=== PATIENT | male | born 1950 | race Caucasian/White ===

== ENCOUNTER 2016-12-16 20:56 | Outpatient (CLI) | payer MEDICARE, OTHER ==
[~2016-12-16 20:56] MED LIST: ASP81TEC PO; GLIM2TAB PO; GLIM4TAB PO; LIRA0.6P SQ; MALARONE; METFOR850T PO; MTP25TSR PO; RAMI10CA PO; [UNRECOGNIZED DRUG - OTHER]; lovaza PO
== END 2016-12-17 06:30 | disposition home or self-care (01) ==
LOC: RAD 20:56 → SLEEP 12-17 06:30
DX: G47.33 Obstructive sleep apnea (adult) (pediatric) (principal)
CPT/HCPCS: 95811

== ENCOUNTER 2017-02-01 09:09 | Outpatient (RCR) | payer MEDICARE, OTHER | END 2017-02-06 | disposition home or self-care (01) | LOC: CR 09:09 | PROVIDERS: ATTEND Internal Medicine Cardiovascular Disease | DX: Z48.812 Encounter for surgical aftercare following surgery on the circulatory system (principal); Z95.1 Presence of aortocoronary bypass graft | CPT/HCPCS: 93798 ==

== ENCOUNTER 2017-04-12 09:08 | Outpatient (RCR) | payer MEDICARE, OTHER | END 2017-05-11 | disposition home or self-care (01) | LOC: CR 09:08 | PROVIDERS: ATTEND Internal Medicine Cardiovascular Disease | DX: Z48.812 Encounter for surgical aftercare following surgery on the circulatory system (principal); Z95.1 Presence of aortocoronary bypass graft | CPT/HCPCS: 93798 ==

== ENCOUNTER → 2017-08-02 | Outpatient (CLI) | payer MEDICARE, OTHER ==
[~2017-08-02] MED LIST changes: +RT-ALBUTEROL SULF 2.5 MG/3 ML PRE-MIX VIAL INH ONE
== END ==
LOC: RT 12:35
PROVIDERS: ATTEND Internal Medicine
DX: R06.02 Shortness of breath (principal)
CPT/HCPCS: 94060; 94726; 94729

== ENCOUNTER → 2017-08-05 | Outpatient (CLI) | payer MEDICARE, OTHER ==
[~2017-08-05] MED LIST changes: -RT-ALBUTEROL SULF 2.5 MG/3 ML PRE-MIX VIAL INH ONE
--- NOTE | 2017-08-05 11:06 | Diagnostic Imaging Report ---
INDICATION: Shortness of air on exertion. TIME OF EXAMINATION: 10:58 AM. COMPARISON: No prior studies are available for comparison. FINDINGS: Changes of median sternotomy and CABG are noted. There are areas of linear parenchymal density in both bases, suggestive of subsegmental atelectasis. The left hemidiaphragm is mildly elevated. No effusion or pneumothorax is seen. IMPRESSION: Bibasilar subsegmental atelectasis. No other significant abnormality is detected. Dictated by: Dictated on workstation # [id number]
== END ==
LOC: RT 10:25
PROVIDERS: ATTEND Internal Medicine
DX: R06.02 Shortness of breath (principal)
CPT/HCPCS: 71046; 94761

== ENCOUNTER 2018-08-24 11:38 | Outpatient (RCR) | payer MEDICARE, OTHER | END 2018-10-25 | disposition home or self-care (01) | LOC: CR 11:38 | PROVIDERS: ATTEND Internal Medicine Cardiovascular Disease | DX: Z48.812 Encounter for surgical aftercare following surgery on the circulatory system (principal); Z95.5 Presence of coronary angioplasty implant and graft | CPT/HCPCS: 93798 ==

== ENCOUNTER → 2018-11-17 | Outpatient (CLI) | payer MEDICARE, OTHER ==
[~2018-11-17] MED LIST changes: +CATHETER FLUSH 10 ML SYR IV PRN; +HOLD METFORMIN - RECEIVED CONTRAST 20 ML VIAL IV SCH; +IOHEXOL 350 MG/ML 100 ML (OMNIPAQUE 350) VIAL IV ONE; +NS 100 ML (IVPB) BAG IV ONE
--- NOTE | 2018-11-17 14:12 | Diagnostic Imaging Report ---
PROCEDURE: CT abdomen and pelvis with contrast. TECHNIQUE: Multiple contiguous axial images were obtained through the abdomen and pelvis after administration of intravenous contrast. Auto Exposure Controls were utilized during the CT exam to meet ALARA standards for radiation dose reduction. INDICATION: Prostate cancer. FINDINGS: No comparison is available. Limited views of the lower thorax reveal patchy areas of atelectasis and calcified shilpi-granulomatous disease. Liver is steatotic. No suspicious liver lesions are seen. Gallbladder is normal. No biliary ductal dilatation. Portal vein is patent. Pancreas, spleen and adrenal glands are normal. There are several bilateral renal cysts. No hydronephrosis. Urinary bladder is normal. No dilated loops of large or small bowel. Surgical clips in the cecum are likely from prior appendectomy. There is no abdominal or pelvic lymphadenopathy. No free fluid or air. There is sclerosis of the superior endplate of S1, likely related to degenerative disease. IMPRESSION: 1. Sclerosis of superior endplate of S1, likely related to degenerative disease, otherwise no evidence of metastatic disease in the abdomen or pelvis. Dictated by: Dictated on workstation # [id number]
--- NOTE | 2018-11-17 17:10 | Diagnostic Imaging Report ---
INDICATION: Prostate cancer. COMPARISON: None. TECHNIQUE: Anterior and posterior scintigraphic images of the whole body were obtained 3 hours after the intravenous injection of 24.2 mCi of Tc-99m MDP. FINDINGS: Abnormal elongated foci of radiotracer uptake within the posterior left fourth and seventh ribs are unchanged when compared to prior examination. The avid focus of radiotracer activity previously noted in the anterior left lower ribs has resolved. The degree of sternal activity has mildly increased since prior examination but is likely due to degenerative changes near the sternomanubrial and sternoclavicular joints. No other abnormal foci of radiotracer activity. Physiologic activity within the kidneys and urinary bladder. IMPRESSION: 1. Overall, no significant change in presumed metastatic lesions in the posterior left ribs. 2. Decreased uptake in the lower anterior left rib may be due to healing of fracture since prior exam. 3. Increased activity within the sternum is likely degenerative and due to sternotomy. If patient's PSA level is raising, CT chest without contrast could be performed for further characterization. Dictated by: Dictated on workstation # [id number]
== END ==
LOC: CARD 12:02
PROVIDERS: ATTEND Internal Medicine Hematology & Oncology
DX: C61 Malignant neoplasm of prostate (principal); M89.8X8 Other specified disorders of bone, other site
CPT/HCPCS: 74177; 78306

== ENCOUNTER 2020-08-29 10:46 | Emergency (ER) | payer MEDICARE ==
[~2020-08-29] VITALS: Ht 182 cm; Wt 107.5 kg
[~2020-08-29 10:46] MED LIST changes: -CATHETER FLUSH 10 ML SYR IV PRN; -HOLD METFORMIN - RECEIVED CONTRAST 20 ML VIAL IV SCH; -IOHEXOL 350 MG/ML 100 ML (OMNIPAQUE 350) VIAL IV ONE; -NS 100 ML (IVPB) BAG IV ONE
[2020-08-29 11:19] LABS: BASOPHILS # (AUTO) 0.1 10^3/uL (0.0-0.1); BASOPHILS % (AUTO) 1 % (0-10); EOSINOPHILS # (AUTO) 0.1 10^3/uL (0.0-0.3); EOSINOPHILS % (AUTO) 2 % (0-10); HEMATOCRIT 42 % (40-54); HEMOGLOBIN 13.8 g/dL (13.3-17.7); LYMPHOCYTES % (AUTO) 31 % (12-44); MEAN CORPUSCULAR HEMOGLOBIN 30 pg (25-34); MEAN CORPUSCULAR HGB CONC 33 g/dL (32-36); MEAN CORPUSCULAR VOLUME 93 fL (80-99); MEAN PLATELET VOLUME 10.5 fL (9.0-12.2); MONOCYTES # (AUTO) 0.7 10^3/uL (0.0-1.0); MONOCYTES % (AUTO) 11 % (0-12); NEUTROPHILS # (AUTO) 3.4 10^3/uL (1.8-7.8); NEUTROPHILS % (AUTO) 54 % (42-75); PLATELET COUNT 225 10^3/uL (130-400); WHITE BLOOD COUNT 6.4 10^3/uL (4.3-11.0)
[2020-08-29 11:32] LABS: INR 1.1 (0.8-1.4); PROTHROMBIN TIME PATIENT 14.4 SEC (12.2-14.7)
[2020-08-29 11:33] LABS: CHLORIDE 103 MMOL/L (98-107); SODIUM 139 MMOL/L (135-145)
[2020-08-29 11:34] LABS: CALCIUM 9.8 MG/DL (8.5-10.1)
[2020-08-29 11:35] LABS: GLUCOSE 205 MG/DL (70-105)
[2020-08-29 11:36] LABS: TOTAL PROTEIN 7.2 GM/DL (6.4-8.2)
[2020-08-29 11:37] LABS: BILIRUBIN,TOTAL 0.8 MG/DL (0.1-1.0); CARBON DIOXIDE 22 MMOL/L (21-32)
[2020-08-29 11:39] LABS: ALKALINE PHOSPHATASE 84 U/L (40-136); CREATININE SERUM 1.16 MG/DL (0.60-1.30); GFR ESTIMATED > 60
[2020-08-29 11:40] LABS: BUN/CREATININE RATIO 16
[2020-08-29 11:42] LABS: ALANINE AMINOTRANSFERASE 16 U/L (0-55); MAGNESIUM 1.4 MG/DL (1.6-2.4)
--- NOTE | 2020-08-29 12:08 | Diagnostic Imaging Report ---
PROCEDURE: CT thoracic spine without contrast. TECHNIQUE: Multiple axial computerized tomography images were obtained from the base of the thoracic spine to the vertex without intravenous contrast. Auto Exposure Controls were utilized during the CT exam to meet ALARA standards for radiation dose reduction. INDICATION: Fall. FINDINGS: Curvature and alignment of the thoracic spine is normal. The vertebral body heights are maintained. No acute fracture is seen. There is generalized degenerative disc disease with variable disc space narrowing and marginal spurring. The paraspinous tissues are unremarkable. There is some scarring or atelectasis in the left base. IMPRESSION: Thoracic spondylosis. No acute bony abnormality is detected. Dictated by: Dictated on workstation # [id number]
--- NOTE | 2020-08-29 12:08 | Diagnostic Imaging Report ---
PROCEDURE: CT head and CT cervical spine without contrast. TECHNIQUE: Multiple contiguous axial images were obtained through the brain and cervical spine without the use of intravenous contrast. Sagittal and coronal reformations through the cervical spine were then performed. Auto Exposure Controls were utilized during the CT exam to meet ALARA standards for radiation dose reduction. INDICATION: Trauma. Fall from standing. Head injury. Headache. Neck and shoulder pain. COMPARISON: None. FINDINGS: CT HEAD: Moderate generalized cerebral and cerebellar parenchymal volume loss. No CT evidence of territorial infarction. No intracranial hemorrhage, mass effect, hydrocephalus or extra-axial fluid collections. Osseous structures are intact. The paranasal sinuses and mastoids are clear. CT cervical spine: Normal alignment. Vertebral body heights preserved. No fractures. Mild to moderate scattered spondylotic changes. No high-grade spinal canal stenosis is evident on soft tissue windows. Sternotomy. Advanced atherosclerotic calcifications in the carotid bifurcations. IMPRESSION: No acute intracranial or cervical spine CT findings. Chronic and incidental findings as above. Dictated by: Dictated on workstation # [id number]
--- NOTE | 2020-08-29 12:22 | ED Fall/Injury ---
General Chief Complaint: Head/Cervical Problems Stated Complaint: FELL HIT HEAD X 1 WK AGO Nursing Triage Note: PT PRESENTS TO ED VIA POV FROM HOME WITH COMPLAINTS OF FALLING 1 WEEK AGO WHEN HE TRIPPED WHILE STANDING. 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 PT DENIES LOC. PT REPORTS SALEH, NECK AND SHOULDER PAIN. Source: patient Exam Limitations: no limitations History of Present Illness Date Seen by Provider: Aug 29, 2020 Time Seen by Provider: 10:53 Initial Comments This is 70-year-old gentleman presents to the emergency room with complaints of rather intense headache and left lateral posterior neck pain after having a fall about a week ago at [place]. He has had pain ever since. He has been putting off being seen hoping that it would improve. He is anticoagulated on Eliquis and takes Plavix as well. He tripped and fell into his lawnmower and then fell into a support beam from his deck injuring his head. There is no loss of consciousness. He is also noted to be significantly hypertensive. He reports taking his medications as prescribed. He denies any neurological deficits. Allergies and Home Medications Allergies Coded Allergies: NKANo Known Allergies (Verified Allergy, Unknown, 02/15/06) Ndmpbbl-Swg-Dcf Reductase Inhibitor (Verified Allergy, Unknown, 04/14/16) Home Medications Amlodipine Besylate 10 Mg Tablet, 10 MG PO DAILY Prescribed by: ANTONIETA CHANG on 08/29/20 1338 Aspirin 81 Mg Tabec, 81 MG PO DAILY, (Reported) Cyclobenzaprine HCl 10 Mg Tablet, 10 MG PO TID PRN for SPASMS Prescribed by: ANTONIETA CHANG on 08/29/20 1338 Glimepiride 2 Mg Tablet, 2 MG PO QID, (Reported) Glimepiride 4 Mg Tablet, 4 MG PO BID, (Reported) Liraglutide 0.6 Mg/0.1 Ml Pen.injctr, 0.6 MG SQ DAILY, (Reported) Magnesium Oxide 400 Mg Tablet, 400 MG PO BID Prescribed by: ANTONIETA CHANG on 08/29/20 1338 Metformin Hcl 850 Mg Tablet, 1 EACH PO BID WITH MEALS, (Reported) Metoprolol Succinate 25 Mg Tab.sr.24h, 1 EACH PO DAILY, (Reported) Ramipril 10 Mg Capsule, 10 MG PO DAILY, (Reported) Tramadol HCl 50 Mg Tablet, 50 MG PO Q6H PRN for PAIN-BREAKTHROUGH Prescribed by: ANTONIETA CHANG on 08/29/20 1339 [lovaza] , 4 MG PO DAILY, (Reported) Patient Home Medication List Home Medication List Reviewed: Yes Review of Systems Review of Systems Constitutional: no symptoms reported Eyes: No Symptoms Reported Ears, Nose, Mouth, Throat: no symptoms reported Respiratory: no symptoms reported Cardiovascular: see HPI Gastrointestinal: no symptoms reported Genitourinary: no symptoms reported Musculoskeletal: no symptoms reported Skin: no symptoms reported Psychiatric/Neurological: See HPI Past Pheucdv-Unspym-Bcdptz Hx Past Med/Social Hx: Reviewed Nursing Past Med/Soc Hx Patient Social History Alcohol Use: Denies Use Smoking Status: Never a Smoker Recent Infectious Disease Expo: No Recent Hopitalizations: No Seasonal Allergies Seasonal Allergies: No Past Medical History Surgeries: Yes Appendectomy, CABG, Coronary Stent Respiratory: Yes Pulmonary Embolism, Sleep Apnea Currently Using CPAP: Yes Cardiac: Yes Heart Attack, High Cholesterol, Hypertension Neurological: Yes Neuropathy Genitourinary: Yes (PROSTATE CA WITH METS) Prostate Problems Gastrointestinal: No Musculoskeletal: No Endocrine: Yes Diabetes, Non-Insulin dep HEENT: Yes Cataract Cancer: Yes Prostate Psychosocial: No Integumentary: No Blood Disorders: No Physical Exam Vital Signs Vital Signs - First Documented 08/29/20 10:55 Temp 35.4 Pulse 82 Resp 20 B/P (MAP) 193/95 (127) Pulse Ox 95 Capillary Refill : Less Than 3 Seconds Height, Weight, BMI Height: '" Weight: lbs. oz. kg; 32.00 BMI Method: General Appearance: WD/WN, no apparent distress HEENT: PERRL/EOMI, normal ENT inspection, TMs normal, pharynx normal Neck: normal inspection Cardiovascular: regular rate, rhythm, no edema, no murmur Respiratory: lungs clear, normal breath sounds, no respiratory distress, no accessory muscle use Gastrointestinal: non tender, soft Extremities: normal inspection, no pedal edema Neurologic/Psychiatric: wire walker II-XII nml as tested, no motor/sensory deficits, alert, normal mood/affect, oriented x 3 Skin: normal color, warm/dry Luciano Coma Score Best Eye Response: (4) Open Spontaneously Best Verbal Response: (5) Oriented Best Motor Response: (6) Obeys Commands Grubbs Total: 15 Progress/Results/Core Measures Results/Orders Lab Results Laboratory Tests Test 08/29/20 11:10 08/29/20 12:53 Range/Units White Blood Count 6.4 4.3-11.0 10^3/uL Red Blood Count 4.55 4.30-5.52 10^6/uL Hemoglobin 13.8 13.3-17.7 g/dL Hematocrit 42 40-54 % Mean Corpuscular Volume 93 80-99 fL Mean Corpuscular Hemoglobin 30 25-34 pg Mean Corpuscular Hemoglobin Concent 33 32-36 g/dL Red Cell Distribution Width 13.1 10.0-14.5 % Platelet Count 225 130-400 10^3/uL Mean Platelet Volume 10.5 9.0-12.2 fL Immature Granulocyte % (Auto) 1 % Neutrophils (%) (Auto) 54 42-75 % Lymphocytes (%) (Auto) 31 12-44 % Monocytes (%) (Auto) 11 0-12 % Eosinophils (%) (Auto) 2 0-10 % Basophils (%) (Auto) 1 0-10 % Neutrophils # (Auto) 3.4 1.8-7.8 10^3/uL Lymphocytes # (Auto) 2.0 1.0-4.0 10^3/uL Monocytes # (Auto) 0.7 0.0-1.0 10^3/uL Eosinophils # (Auto) 0.1 0.0-0.3 10^3/uL Basophils # (Auto) 0.1 0.0-0.1 10^3/uL Immature Granulocyte # (Auto) 0.1 0.0-0.1 10^3/uL Prothrombin Time 14.4 12.2-14.7 SEC INR Comment 1.1 0.8-1.4 Sodium Level 139 135-145 MMOL/L Potassium Level 4.0 3.6-5.0 MMOL/L Chloride Level 103 98-107 MMOL/L Carbon Dioxide Level 22 21-32 MMOL/L Anion Gap 14 5-14 MMOL/L Blood Urea Nitrogen 19 H 7-18 MG/DL Creatinine 1.16 0.60-1.30 MG/DL Estimat Glomerular Filtration Rate > 60 BUN/Creatinine Ratio 16 Glucose Level 205 H 70-105 MG/DL Calcium Level 9.8 8.5-10.1 MG/DL Corrected Calcium 9.8 8.5-10.1 MG/DL Magnesium Level 1.4 L 1.6-2.4 MG/DL Total Bilirubin 0.8 0.1-1.0 MG/DL Aspartate Amino Transf (AST/SGOT) 20 5-34 U/L Alanine Aminotransferase (ALT/SGPT) 16 0-55 U/L Alkaline Phosphatase 84 40-136 U/L Total Protein 7.2 6.4-8.2 GM/DL Albumin 4.0 3.2-4.5 GM/DL Urine Color YELLOW Urine Clarity CLEAR Urine pH 5.5 5-9 Urine Specific [place] >=1.030 1.016-1.022 Urine Protein 3+ H NEGATIVE Urine Glucose (UA) 1+ H NEGATIVE Urine Ketones NEGATIVE NEGATIVE Urine Nitrite NEGATIVE NEGATIVE Urine Bilirubin NEGATIVE NEGATIVE Urine Urobilinogen 0.2 < = 1.0 MG/DL Urine Leukocyte Esterase NEGATIVE NEGATIVE Urine RBC (Auto) TRACE-I NEGATIVE Urine RBC RARE /HPF Urine WBC RARE /HPF Urine Crystals NONE /LPF Urine Bacteria FEW H /HPF Urine Casts PRESENT /LPF Urine Hyaline Casts RARE /LPF Urine Mucus SMALL H /LPF Urine Culture Indicated NO My Orders Orders - ANTONIETA CASTELLANOS MD Ct Head/Cervical Spine Wo (08/29/20 11:01) Ct Thoracic Spine Wo (08/29/20 11:01) Ed Iv/Invasive Line Start (08/29/20 11:01) Cbc With Automated Diff (08/29/20 11:01) Comprehensive Metabolic Panel (08/29/20 11:01) Magnesium (08/29/20 11:01) Ua Culture If Indicated (08/29/20 11:01) Protime With Inr (08/29/20 11:01) Magnesium Oxide Tablet (Mag Ox Tablet) (08/29/20 13:00) Amlodipine Tablet (Norvasc Tablet) (08/29/20 13:00) Acetaminophen Tablet (Tylenol Tablet) (08/29/20 13:00) Tramadol Tablet (Ultram Tablet) (08/29/20 13:00) Medications Given in ED Current Medications Medications Dose Ordered Sig/Brian Route Start Time Stop Time Status Last Admin Dose Admin Acetaminophen 1,000 mg ONCE ONCE PO 08/29/20 13:00 08/29/20 13:01 DC 08/29/20 13:14 1,000 MG Amlodipine Besylate 10 mg ONCE ONCE PO 08/29/20 13:00 08/29/20 13:01 DC 08/29/20 13:14 10 MG Magnesium Oxide 400 mg ONCE ONCE PO 08/29/20 13:00 08/29/20 13:01 DC 08/29/20 13:14 400 MG Tramadol HCl 50 mg ONCE ONCE PO 08/29/20 13:00 08/29/20 13:01 DC 08/29/20 13:14 50 MG Vital Signs/I&O 08/29/20 08/29/20 10:55 14:03 Temp 35.4 Pulse 82 63 Resp 20 18 B/P (MAP) 193/95 (127) 207/104 Pulse Ox 95 97 Blood Pressure Mean: 127 Progress Progress Note #1: Time: 13:29 Progress Note Patient's imaging studies were negative for acute injuries or other causes of headache. He drove here and intends to drive home so we are going to avoid giving him sedating pain medications. He may not take NSAIDs due to his Plavix and Eliquis use. He did receive Tylenol and Ultram in the ER. He also persistently high blood pressures exceeding 200 systolic. He was treated with amlodipine. Magnesium was also given as he has mild hypomagnesemia of 1.4. He reports a white coat syndrome with routinely higher blood pressures in the healthcare setting than at home. He does have a sphygmomanometer at home and will monitor his blood pressures there. He will call me if his blood pressure remains high after a few hours of returning home. See discharge instructions for further discussion. I am uncertain if his headache is caused by hypertension or if his hypertension is caused by headache. We will treat both in hopes of achieving good results. Although patient's blood pressure remains high, he is confident it will improve once he returns home as this has historically been the pattern. He is comfortable returning home and commits to calling me if blood pressure remains high. Progress Note #2: Time: 16:00 Progress Note Patient called back to inform me that his blood pressure at home was 156/71. Diagnostic Imaging Diagonstic Imaging: CT Plain Films/CT/US/NM/MRI: other (Thoracic spine) Comments CT thoracic spine viewed by me and report reviewed. See report below: NAME: [facility] REC#: [id number] PT STATUS: REG ER : 1950 PHYSICIAN: ANTONIETA CASTELLANOS MD ADMIT DATE: 08/29/20/ER Draft Date of Exam:08/29/20 CT THORACIC SPINE WO PROCEDURE: CT thoracic spine without contrast. TECHNIQUE: Multiple axial computerized tomography images were obtained from the base of the thoracic spine to the vertex without intravenous contrast. Auto Exposure Controls were utilized during the CT exam to meet ALARA standards for radiation dose reduction. INDICATION: Fall. FINDINGS: Curvature and alignment of the thoracic spine is normal. The vertebral body heights are maintained. No acute fracture is seen. There is generalized degenerative disc disease with variable disc space narrowing and marginal spurring. The paraspinous tissues are unremarkable. There is some scarring or atelectasis in the left base. IMPRESSION: Thoracic spondylosis. No acute bony abnormality is detected. Dictated on workstation # [id number] Dict: 08/29/20 1158 Trans: 08/29/20 1207 [id number] Interpreted by: SHELBY YAO MD Diagonstic Imaging: CT Plain Films/CT/US/NM/MRI: c-spine, head Comments CT head and cervical spine viewed by me and report reviewed. See report below: NAME: [facility] REC#: [id number] PT STATUS: REG ER : 1950 PHYSICIAN: ANTONIETA CASTELLANOS MD ADMIT DATE: 08/29/20/ER Draft Date of Exam:08/29/20 CT HEAD/CERVICAL SPINE WO PROCEDURE: CT head and CT cervical spine without contrast. TECHNIQUE: Multiple contiguous axial images were obtained through the brain and cervical spine without the use of intravenous contrast. Sagittal and coronal reformations through the cervical spine were then performed. Auto Exposure Controls were utilized during the CT exam to meet ALARA standards for radiation dose reduction. INDICATION: Trauma. Fall from standing. Head injury. Headache. Neck and shoulder pain. COMPARISON: None. FINDINGS: CT HEAD: Moderate generalized cerebral and cerebellar parenchymal volume loss. No CT evidence of territorial infarction. No intracranial hemorrhage, mass effect, hydrocephalus or extra-axial fluid collections. Osseous structures are intact. The paranasal sinuses and mastoids are clear. CT cervical spine: Normal alignment. Vertebral body heights preserved. No fractures. Mild to moderate scattered spondylotic changes. No high-grade spinal canal stenosis is evident on soft tissue windows. Sternotomy. Advanced atherosclerotic calcifications in the carotid bifurcations. IMPRESSION: No acute intracranial or cervical spine CT findings. Chronic and incidental findings as above. Dictated on workstation # [id number] Dict: 08/29/20 1151 Trans: 08/29/20 1207 [id number] Interpreted by: KRISTEL NEVAREZ MD Departure Impression Primary Impression: Fall on same level Qualified Codes: W18.30XA - Fall on same level, unspecified, initial encounter Additional Impressions: Closed head injury Qualified Codes: S09.90XA - Unspecified injury of head, initial encounter Episode of hypertension Neck pain Hypomagnesemia Disposition: HOME, SELF-CARE Condition: Improved Departure-Patient Inst. Decision time for Depature: 13:32 Referrals: PARISH REYES DO (PCP/Family) Primary Care Physician Patient Instructions: Closed Head Injury, High Blood Pressure (DC) Add. Discharge Instructions: 1. Headache and neck pain: For primary treatment of your headache and neck pain take Tylenol (acetaminophen) up to 1000 mg every 6 hours. Add Ultram (tramadol) as prescribed for further pain relief. Cyclobenzaprine may be used for muscle spasms in your neck. Gentle heat applied to the neck may also help your muscles relax. Avoid use of NSAIDs such as naproxen, Aleve, Advil, ibuprofen, aspirin, etc. as they may cause dangerous bleeding interactions with your blood thinners. 2. High blood pressure: Start amlodipine as prescribed. 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 Reyes. Check your blood pressure at home. If you are still having persistently high blood pressures over 180 on the top number after you have been home for a couple hours, please contact Dr. Chang in the emergency room. 3. Your magnesium was a bit low today. This may be contributing to muscle cramps and headaches. Please take the magnesium supplement as prescribed for the next 5 days. 4. Call with questions or concerns. Return to the emergency room if you have worsening symptoms despite treatment. Follow-up with your primary care provider as soon as possible. All discharge instructions reviewed with patient and/or family. Voiced understanding. Scripts Cyclobenzaprine HCl (Cyclobenzaprine HCl) 10 Mg Tablet 10 MG PO TID PRN for SPASMS, #10 TAB Prov: ANTONIETA CASTELLANOS MD 08/29/20 Amlodipine Besylate (Amlodipine Besylate) 10 Mg Tablet 10 MG PO DAILY, #30 TAB Prov: ANTONIETA CASTELLANOS MD 08/29/20 Magnesium Oxide (Magnesium Oxide) 400 Mg Tablet 400 MG PO BID, #10 TAB Prov: ANTONIETA CASTELLANOS MD 08/29/20 Tramadol HCl (Ultram) 50 Mg Tablet 50 MG PO Q6H PRN for PAIN-BREAKTHROUGH, #10 TAB Prov: ANTONIETA CASTELLANOS MD 08/29/20 Copy Copies To 1: PARISH REYES JOSHUA T MD Aug 29, 2020 12:22
[2020-08-29 12:58] LABS: BILIRUBIN,URINE NEGATIVE (NEGATIVE); CLARITY,URINE CLEAR; COLOR,URINE YELLOW; GLUCOSE, URINE (UA) 1+ (NEGATIVE); KETONES,URINE NEGATIVE (NEGATIVE); LEUKOCYTE ESTERASE ,URINE NEGATIVE (NEGATIVE); NITRITE,URINE NEGATIVE (NEGATIVE); PH,URINE 5.5 (5-9); PROTEIN,URINE 3+ (NEGATIVE)
[2020-08-29] MEDS ORDERED: MAGNESIUM OXIDE (MAG-OX)400 MG TAB PO ONE (13:00)
[2020-08-29] MEDS ORDERED: ACETAMINOPHEN 500 MG TAB (TYLENOL) PO ONE (13:00)
[2020-08-29] MEDS ORDERED: amLODIPine 10 MG (NORVASC) TAB PO ONE (13:00)
[2020-08-29 13:05] LABS: BACTERIA,URINE FEW /HPF; RBC,URINE RARE /HPF; WBC,URINE RARE /HPF
[2020-08-29 13:06] LABS: HYALINE CASTS, URINE RARE /LPF
[2020-08-29] MEDS ORDERED: AMLO-251 PO (13:38)
[2020-08-29] MEDS ORDERED: MAGN400T8 PO (13:38)
[2020-08-29] MEDS ORDERED: CYCL10TA9 PO (13:38)
[2020-08-29] MEDS ORDERED: TRAM-42 PO (13:38)
[2020-08-29 14:03] VITALS: BP 207/104
== END 2020-08-29 14:01 | disposition home or self-care (01) ==
LOC: EDUNIT# 10:46 → ER 10:49
DX: S09.90XA Unspecified injury of head, initial encounter (principal); I10 Essential (primary) hypertension; M54.2 Cervicalgia; E83.42 Hypomagnesemia; I25.2 Old myocardial infarction; E11.9 Type 2 diabetes mellitus without complications; Z88.8 Allergy status to other drugs, medicaments and biological substances; Z86.711 Personal history of pulmonary embolism; Z79.82 Long term (current) use of aspirin; Z79.899 Other long term (current) drug therapy; Z79.84 Long term (current) use of oral hypoglycemic drugs; Z79.01 Long term (current) use of anticoagulants; W01.0XXA Fall on same level from slipping, tripping and stumbling without subsequent striking against object, initial encounter
CPT/HCPCS: 36415; 70450; 72125; 72128; 80053; 81000; 83735; 85025; 85610

== ENCOUNTER → 2020-11-05 | Outpatient (CLI) | payer MEDICARE ==
[~2020-11-05] MED LIST changes: +AMLO-251 PO; +CYCL10TA9 PO; +MAGN400T8 PO; +TRAM-42 PO
== END ==
LOC: CARD 13:57
PROVIDERS: ATTEND Internal Medicine Cardiovascular Disease
DX: I49.9 Cardiac arrhythmia, unspecified (principal)
CPT/HCPCS: 93005

== ENCOUNTER → 2021-03-10 | Outpatient (CLI) | payer MEDICARE ==
[~2021-03-10] MED LIST changes: -MAGN400T8 PO; +MGX400T PO
--- NOTE | 2021-03-10 17:51 | Diagnostic Imaging Report ---
EXAMINATION: Left shoulder 2 or more views HISTORY: Fall and pain COMPARISON: None available. FINDINGS: The alignment is normal. No fracture is seen. The acromioclavicular and glenohumeral joint spaces are normal. IMPRESSION: 1. No fracture. Dictated by: Dictated on workstation # [id number]
--- NOTE | 2021-03-10 17:52 | Diagnostic Imaging Report ---
CLINICAL HISTORY: Fall. Neck pain. COMPARISON: 08/29/2020. TECHNIQUE: 4 views of the cervical spine. FINDINGS: There is no acute fracture or dislocation of the cervical spine. There is reversal of the normal lordotic curvature of the cervical spine centered at C5, likely due to positioning. The vertebral body heights are maintained. Degenerative changes are present in the cervical spine with disc height loss and disc osteophyte complexes. The prevertebral soft tissues are unremarkable. The included lung apices are clear. Views of the dens are unremarkable. IMPRESSION: 1. No acute fracture or dislocation in the cervical spine. Dictated by: Dictated on workstation # [id number]
--- NOTE | 2021-03-10 17:53 | Diagnostic Imaging Report ---
CLINICAL HISTORY: Fall. Mid back pain. COMPARISON: 08/29/2020. TECHNIQUE: 2 views of the thoracic spine. FINDINGS: There is no acute fracture or dislocation of the thoracic spine. Alignment is anatomic. No focal osseous lesions are seen. The included lungs are clear. IMPRESSION: 1. No acute fracture or dislocation in the thoracic spine. Dictated by: Dictated on workstation # [id number]
== END ==
LOC: RAD 17:19
PROVIDERS: ATTEND Internal Medicine
DX: M54.6 Pain in thoracic spine (principal); M25.512 Pain in left shoulder; M54.2 Cervicalgia; W19.XXXA Unspecified fall, initial encounter
CPT/HCPCS: 72040; 72072; 73030